=== PATIENT | male | born 1930 | race Caucasian/White ===

== ENCOUNTER 2016-09-07 06:10 | Day surgery (SDC) | payer OTHER ==
[2016-09-02 11:01] LABS: Basophils # (auto) 0 uL; Basophils % (auto) 0.7 % (0.0-2.0); CONDITION Y; DEFINITIVE SEE PRINTOUT; Eosinophils # (auto) 0.4 uL; Eosinophils % (auto) 4.9 % (0.0-7.0); Hematocrit 35.1 % (41.0-53.0); Hemoglobin 11.6 g/dL (13.5-17.5); Lymphocytes # (auto) 1.2 uL; Lymphocytes % (auto) 17.2 % (10.0-50.0); Mean Corpuscular Hgb Conc. 32.9 g/dL (32.0-36.0); Mean Platelet Volume 8.3 fL (7.4-10.4); Monocytes # (auto) 0.6 uL; Monocytes % (auto) 8.3 % (0.0-12.0); Neutrophils # (auto) 4.9 uL; Neutrophils % (auto) 68.9 % (37.0-80.0); Platelet Count (auto) 293 10^3/uL (140-450); Red Cell Distribution Width 16.2 % (11.6-16.0); White Blood Cell 7.2 10^3/uL (4.4-10.8)
[2016-09-02 11:10] LABS: Urine Bilirubin Negative (Negative); Urine Blood TRACE /uL (Negative); Urine Color Yellow (Yellow); Urine Glucose Normal (Normal); Urine Ketone Negative (Negative); Urine Mucus FEW (None Seen); Urine Nitrite Negative (Negative); Urine RBC 5 /hpf (0 - 3); Urine Squamous Epithelial Cell FEW /hpf (<5); Urine Urobilinogen Normal (Negative); Urine WBC Clumps PRESENT /hpf (None Seen); Urine pH 5.5 (5.0-8.0)
[2016-09-02 11:21] LABS: INR 1.12 (0.9-1.15); Partial Thromboplastin Time 29.6 sec (22.64-33.71); Prothrombin Time 12.2 sec (9.37-12.3)
[2016-09-02 11:23] LABS: Albumin 3.7 g/dL (3.4-5.0); BUN/Creatinine Ratio 11.1; Bilirubin, Total 0.6 mg/dL (0.2-1.0); Total Protein 7.5 g/dL (6.4-8.2)
[~2016-09-07] VITALS: Ht 172.7 cm; Wt 81.6 kg
[~2016-09-07 06:10] MED LIST: AMI200T OR; AMLO10TA2 PO; CARV6.2551 PO; DONE5TAB28 PO; INSU70IN3 SC; LATA0.0015 EACHEYE; LISI-646 PO; METF-370 PO; SIMV-8 PO
[2016-09-07] MEDS ORDERED: ceFAZolin 1GM/50ML D5W 50 ML IV ONE (07:12)
[2016-09-07] MEDS ORDERED: fentaNYL CITRATE 100 MCG/2 ML VL ONE ×2 (10:34→10:39)
[2016-09-07] MEDS ORDERED: ROCURONIUM 10MG/ML 10ML VIAL IV ONE (10:34)
[2016-09-07] MEDS ORDERED: MIDAZOLAM HCL 1MG/1ML-2 ML VIAL ONE (10:34)
[2016-09-07] MEDS ORDERED: PROPOFOL 10 MG/ML 20 ML IV ONE (10:37)
[2016-09-07] MEDS ORDERED: GLYCOPYRROLATE 0.2 MG/ML 1ML VIAL IV ONE (10:50)
[2016-09-07] MEDS ORDERED: NEOSTIGMINE 1 MG/ML INJ (10mg/10ML VIAL) IV ONE (10:50)
[2016-09-07] MEDS ORDERED: ONDANSETRON HCL 4 MG/2 ML VIAL IV ONE (12:30)
[2016-09-07] MEDS ORDERED: ePHEDrine SULFATE 50 MG/ML AMP IV PRN (12:30)
[2016-09-07] MEDS ORDERED: hydrALAZINE HCL 20 MG/ML VL IV PRN (12:30)
[2016-09-07] MEDS ORDERED: MORPHINE SULF INJ 2 MG/ML SYRINGE 1ML IV PRN (12:30)
[2016-09-07] MEDS ORDERED: HYDROmorphone HCL 2 MG/ML VL ONE (14:44)
[2016-09-07 15:15] VITALS: BP 145/73
[2016-10-26] MEDS ORDERED: ASPI81TA27 PO (17:46)
[2016-10-26] MEDS ORDERED: LISI-646 PO (17:46)
== END 2016-09-07 15:25 | disposition home or self-care (01) ==
LOC: SUR 06:10
PROVIDERS: ATTEND Urology
DX: N40.1 Benign prostatic hyperplasia with lower urinary tract symptoms (principal); N21.0 Calculus in bladder; Z95.0 Presence of cardiac pacemaker; Z95.1 Presence of aortocoronary bypass graft; E11.9 Type 2 diabetes mellitus without complications; C18.9 Malignant neoplasm of colon, unspecified; Z90.49 Acquired absence of other specified parts of digestive tract
CPT/HCPCS: 36415; 52317; 52601; 80053; 81001; 82962; 85025; 85610; 85730; 87086; 88305; 93005; J0690; J1170; J2250; J2270; J2405; J2704; J3010

== ENCOUNTER 2016-09-08 17:46 | Inpatient (IN) | payer OTHER ==
[~2016-09-08] VITALS: Ht 172.7 cm; Wt 84.5 kg
[2016-09-08] MEDS ORDERED: HYDROmorphone HCL 2 MG/ML VL IV ONE (21:30)
[2016-09-08] MEDS ORDERED: SODIUM CHLORIDE 0.9% 1,000 ML IV ONE (21:30)
[2016-09-08] MEDS ORDERED: ONDANSETRON HCL 4 MG/2 ML VIAL IV ONE (22:30)
[2016-09-09 00:46] LABS: Urine Bilirubin Negative (Negative); Urine Color Red (Yellow); Urine Ketone Negative (Negative); Urine Mucus MODERATE (None Seen); Urine Nitrite Negative (Negative); Urine RBC 466 /hpf (0 - 3); Urine Urobilinogen Normal (Negative)
[2016-09-09 00:50] LABS: Urine Blood 3+ /uL (Negative); Urine Glucose 1+ mg/dL (Normal)
[2016-09-09 01:11] LABS: Basophils # (auto) 0 uL; Basophils % (auto) 0.2 % (0.0-2.0); DEFINITIVE SEE PRINTOUT; Eosinophils # (auto) 0 uL; Hematocrit 34.4 % (41.0-53.0); Hemoglobin 11.2 g/dL (13.5-17.5); Lymphocytes # (auto) 0.8 uL; Lymphocytes % (auto) 7.6 % (10.0-50.0); Mean Corpuscular Hemoglobin 25.8 pg (28.0-32.0); Mean Corpuscular Hgb Conc. 32.7 g/dL (32.0-36.0); Mean Corpuscular Volume 78.8 fL (80.0-100.0); Mean Platelet Volume 9.1 fL (7.4-10.4); Monocytes # (auto) 0.7 uL; Monocytes % (auto) 6.3 % (0.0-12.0); Neutrophils # (auto) 9.4 uL; Neutrophils % (auto) 85.9 % (37.0-80.0); Platelet Count (auto) 206 10^3/uL (140-450); Red Cell Distribution Width 15.3 % (11.6-16.0); SUSPECT SEE PRINTOUT; White Blood Cell 10.9 10^3/uL (4.4-10.8)
[2016-09-09 01:16] LABS: Albumin 3.5 g/dL (3.4-5.0); Anion Gap 11 (5-15); Aspartate Aminotransferase 11 U/L (15-37); BUN/Creatinine Ratio 14.6; Blood Urea Nitrogen 31 mg/dL (7-18); Calcium 8.2 mg/dL (8.5-10.1); Carbon Dioxide 22 mmol/L (21-32); Chloride 103 mmol/L (98-107); GFR African American 38 mL/min; GFR Non-African American 31 mL/min; Glucose 215 mg/dL (74-106); Magnesium 1.8 mg/dL (1.6-2.6); Potassium 4.5 mmol/L (3.5-5.1); Sodium 136 mmol/L (136-145)
[2016-09-09 01:22] LABS: Alkaline Phosphatase 50 U/L (45-117); Bilirubin, Total 0.5 mg/dL (0.2-1.0)
[2016-09-09] MEDS ORDERED: NITROGLYCERIN 0.4 MG SL TAB SL PRN (03:30)
[2016-09-09] MEDS ORDERED: MORPHINE SULF INJ 2 MG/ML SYRINGE 1ML IV PRN (03:30)
[2016-09-09] MEDS ORDERED: cefTRIAXone 1GM/50ML D5W 50 ML IV ONE (03:30)
[2016-09-09] MEDS ORDERED: DEXTROSE (50%) 50ML SYRG IV PRN (03:30)
[2016-09-09] MEDS ORDERED: HYDROmorphone HCL 2 MG/ML VL IV PRN (03:30)
[2016-09-09] MEDS ORDERED: ONDANSETRON HCL 4 MG/2 ML VIAL IV PRN (03:30)
[2016-09-09 04:50] VITALS: BP 156/85
[2016-09-09 05:00] VITALS: BP 156/85
[2016-09-09] MEDS: SODIUM CHLOR 0.9% PF (SALINE LOCK) 10ML VIAL IV SCH ×3 (05:32→21:53)
[2016-09-09] MEDS: ACCU-CHEK COMFORT CURVE STRIP VI SCH ×4 (05:54→23:07)
[2016-09-09] MEDS: InsuLIN REG 1unit/0.01ml Soln (100units/ml) SC SCH ×4 (05:55→23:06)
[2016-09-09 09:00] VITALS: BP 140/70
[2016-09-09] MEDS: cefTRIAXone 1GM/50ML D5W 50 ML IV SCH (09:41)
[2016-09-09] MEDS: CARVEDILOL 3.125 MG TAB PO SCH ×2 (09:42→21:53)
[2016-09-09] MEDS: LISINOPRIL 20 MG TAB PO SCH (09:42)
[2016-09-09] MEDS: AMIODARONE HCL 200 MG TAB PO SCH (09:42)
[2016-09-09] MEDS: amLODIPine BESYLATE 5 MG TAB PO SCH (09:43)
[2016-09-09 13:00] VITALS: BP 136/68
[2016-09-09 16:55] VITALS: BP 134/97
[2016-09-09 21:42] VITALS: BP 132/58
[2016-09-09] MEDS ORDERED: LATANOPROST 0.005 % OPTH(EYE) SOL 2.5ML EACHEYE SCH (22:00)
[2016-09-09] MEDS ORDERED: ATORVASTATIN 20 MG TAB PO SCH (22:00)
[2016-09-09] MEDS ORDERED: DONEPEZIL HYDROCHLORIDE 5 MG TAB PO SCH (22:00)
[2016-09-10 05:12] LABS: Basophils # (auto) 0 uL; Basophils % (auto) 0.2 % (0.0-2.0); CONDITION Y; DEFINITIVE SEE PRINTOUT; Eosinophils # (auto) 0.1 uL; Eosinophils % (auto) 0.9 % (0.0-7.0); Hematocrit 28.4 % (41.0-53.0); Hemoglobin 9.4 g/dL (13.5-17.5); Lymphocytes # (auto) 0.8 uL; Lymphocytes % (auto) 8.9 % (10.0-50.0); Mean Corpuscular Hgb Conc. 33.1 g/dL (32.0-36.0); Mean Corpuscular Volume 78.7 fL (80.0-100.0); Monocytes # (auto) 0.9 uL; Monocytes % (auto) 9.1 % (0.0-12.0); Neutrophils # (auto) 7.6 uL; Neutrophils % (auto) 80.9 % (37.0-80.0); Platelet Count (auto) 199 10^3/uL (140-450); Red Cell Distribution Width 16.6 % (11.6-16.0); White Blood Cell 9.4 10^3/uL (4.4-10.8)
[2016-09-10 05:35] LABS: Albumin 2.9 g/dL (3.4-5.0); BUN/Creatinine Ratio 17.1; Bilirubin, Total 0.5 mg/dL (0.2-1.0); Calcium 8.2 mg/dL (8.5-10.1); Total Protein 5.9 g/dL (6.4-8.2)
[2016-09-10] MEDS: InsuLIN REG 1unit/0.01ml Soln (100units/ml) SC SCH ×2 (06:10→12:00)
[2016-09-10] MEDS: SODIUM CHLOR 0.9% PF (SALINE LOCK) 10ML VIAL IV SCH ×2 (06:10→14:00)
[2016-09-10] MEDS: ACCU-CHEK COMFORT CURVE STRIP VI SCH ×2 (06:10→12:00)
[2016-09-10 06:23] VITALS: BP 119/42
[2016-09-10 07:52] VITALS: BP 128/58
[2016-09-10 08:00] VITALS: BP 128/74
[2016-09-10] MEDS: cefTRIAXone 1GM/50ML D5W 50 ML IV SCH (08:51)
[2016-09-10] MEDS: amLODIPine BESYLATE 5 MG TAB PO SCH (10:25)
[2016-09-10] MEDS: CARVEDILOL 3.125 MG TAB PO SCH (10:26)
[2016-09-10] MEDS: AMIODARONE HCL 200 MG TAB PO SCH (10:27)
[2016-09-10] MEDS: LISINOPRIL 20 MG TAB PO SCH (10:27)
[2016-09-10 12:00] VITALS: BP 140/60
== END 2016-09-10 16:00 | disposition home or self-care (01) | DRG 919 ==
LOC: ER 17:59 → TELE 18:00 → TELE-WESTW 09-09 04:43
PROVIDERS: ADMIT Family Medicine; ATTEND Internal Medicine
DX: N99.820 Postprocedural hemorrhage of a genitourinary system organ or structure following a genitourinary system procedure (principal); J96.20 Acute and chronic respiratory failure, unspecified whether with hypoxia or hypercapnia; N17.9 Acute kidney failure, unspecified; N39.0 Urinary tract infection, site not specified; E11.8 Type 2 diabetes mellitus with unspecified complications; I11.0 Hypertensive heart disease with heart failure; I50.9 Heart failure, unspecified; R31.9 Hematuria, unspecified; Z95.810 Presence of automatic (implantable) cardiac defibrillator; R33.9 Retention of urine, unspecified; Y83.9 Surgical procedure, unspecified as the cause of abnormal reaction of the patient, or of later complication, without mention of misadventure at the time of the procedure
CPT/HCPCS: 36415; 51702; 71010; 80053; 80061; 81001; 82962; 83036; 83735; 83880; 84484; 85025; 85379; 93005; 96361; 96365; 96366; 96375; 97163; J0696; J1815; J2405